=== PATIENT | female | born 1990 | race Caucasian/White ===

== ENCOUNTER → 2019-04-28 15:48 | Outpatient (BNVA) | payer MEDICAID, SELFPAY | PROVIDERS: Family Provider Nurse Practitioner; PCP Nurse Practitioner; Referring Provider Family Medicine; Visit Provider Podiatrist Foot & Ankle Surgery | DX: M79.672 Pain in left foot (principal) | CPT/HCPCS: 73630 ==

== ENCOUNTER 2023-01-17 23:12 | Observation (INO) | payer MEDICAID, SELFPAY ==
[2023-01-17 23:22] VITALS: BP 141/94; PULSE 53; RESP 16; TEMP 36.3; O2SAT 100
--- NOTE | 2023-01-17 23:26 | ECG_ITS ---
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 Measurements Intervals [place] Rate: 56 P: 66 IN: 155 QRS: 67 QRSD: 102 T: 35 QT: 433 QTc: 418 Interpretive Statements SINUS BRADYCARDIA WITH SINUS ARRHYTHMIA No previous ECG available for comparison Electronically Signed On 01-18-2023 12:29:54 CDT by Isidro Dillard M.D. [id number]
[2023-01-17 23:55] LABS: Basophils # 0.1 10^3/uL (0.0-0.1); Basophils % 0.5 %; Eosinophils # 0.1 10^3/uL (0.0-0.8); Eosinophils % 1.2 %; Hematocrit 43.5 % (36-47); Lymphocytes # 1.6 10^3/uL (0.8-4.8); Lymphocytes % 13.9 %; Mean Corpuscular HGB Conc 32.9 g/dL (30-55); Mean Corpuscular Hemoglobin 27.9 pg (27-33); Mean Corpuscular Volume 84.8 fl (85-98); Mean Platelet Volume 9.2 fL (7.4-10.4); Monocytes # 0.6 10^3/uL (0.2-0.9); Monocytes % 4.9 %; Neutrophils # 8.87 10^3/uL (1.8-7.7); Neutrophils % 79.1 %; Nucleated Red Blood Cells % 0 %; Platelet Count 326 10^3/cmm (157-399); Red Blood Count 5.13 10^6/uL (3.85-5.65); Red Cell Distribution Width 12.7 % (12.1-15.1); White Blood Count 11.21 10^3/uL (3.29-11.43)
--- NOTE | 2023-01-18 00:04 | USR_ITS ---
PROCEDURE INFORMATION: Exam: US Abdomen, Limited; Right Upper Quadrant Exam date and time: 01/18/2023 12:24 AM Age: 32 years old Clinical indication: Abdominal pain; Other: Ruq pain x 4 hours; Patient HX: History of intermittent ruq pain x 4 years. TECHNIQUE: Imaging protocol: Real time ultrasound of the abdomen with image documentation. Limited exam focused on the right upper quadrant. COMPARISON: US OB >= 14 weeks fetus [id number] 11/22/2017 1:26 PM FINDINGS: Liver: The liver is enlarged measuring up to 20.5 cm in length. No focal lesions. Gallbladder: There is a shadowing stone in the neck of the gallbladder measuring up to 23 mm. Gallbladder wall thickening measuring up to 7 mm. Sonographic Waite's sign elicited during the examination. Biliary ducts: The common bile duct measures up to 7 mm. Pancreas: Visualized pancreas is unremarkable. Right kidney: Right kidney measures 12.2 cm in length with no hydronephrosis or renal calculus. Inferior vena cava: Visualized abdominal aorta and IVC are unremarkable. US/US gall bladder [id number] IMPRESSION: Acute cholecystitis.
[2023-01-18 00:08] LABS: HCG, Serum Qual Negative (Negative)
--- NOTE | 2023-01-18 00:14 | W.ED.ABDPA2 ---
HPI - Abdominal Pain General: Chief Complaint: Abdominal Pain Stated Complaint: N\V Conjestion Time Seen by Provider: 01/17/23 23:50 Source: patient Mode of arrival: ambulatory Limitations: no limitations History of Present Illness: 32-year-old female states that roughly an hour ago she started having right upper quadrant and epigastric pain. States it was a sharp pain rates an 8 out of 10 she had some belching and nausea had some similar episodes like this in the past she denies any fevers denies any worsening proving factors. Associated Symptoms: Reports nausea; Denies chills, diarrhea, dysuria, fever(s) and vomiting Review of Systems Const: Denies: fever(s), chills, body aches or change in appetite Eyes: Denies: blurry vision or eye discomfort ENMT: Denies: throat pain or dental pain Card: Denies: chest pain Resp: Denies: dyspnea GI: Reports: abdominal pain and nausea; Denies: vomiting or diarrhea : Denies: dysuria Musc: Denies: neck pain or back pain Skin/Breast: Denies: rash Neuro: Denies: headache(s) PFSH ED PFSH: Family History Denies family history of Diabetes CAD (coronary artery disease) Clotting disorder Dementia Hyperlipidemia Psychiatric illness Chronic kidney disease (CKD) Suicide Anesthesia complication Bleeding disorder Family history of premature coronary artery disease Lung disease Cancer Hypertension Stroke Social History Smoking and tobacco/nicotine status: current every day tobacco/nicotine user cigarettes Packs smoked per day: 1 Alcohol intake: current Alcohol intake frequency: holidays/special occasions only Substance/Drug Use: never Current occupational status: employed 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 Physical Exam Const: COMMON NORMALS: no acute distress, patient oriented x3 and healthy appearing HENMT: COMMON NORMALS: normocephalic and atraumatic HEAD & SCALP: normocephalic and atraumatic Eye: COMMON NORMALS: Equal, round and reactive pupils present and EOMs intact bilaterally PUPIL: Yes Equal, round and reactive pupils present Neck/C-Spine: COMMON NORMALS: full ROM and supple Chest: COMMONS NORMALS: normal inspection of the chest and normal palpation of entire chest wall Resp: COMMON NORMALS: normal respiratory effort, No retractions, No use of accessory muscles and clear to auscultation bilaterally AUSCULTATION: clear to auscultation bilaterally Cardio: COMMON NORMALS: regular rate, regular rhythm and No murmurs present (Cardio) RATE: regular rate RHYTHM: regular rhythm GI: COMMON NORMALS: Normal to inspection, nondistended, normoactive bowel sounds present, Soft to palpation and no masses PALPATION: Yes Soft to palpation and Yes Tenderness to palpation present (GI) Details: RUQ Extremity: COMMON NORMALS: normal to inspection and full ROM Neuro: COMMON NORMALS: patient oriented x3, moves all extremities and no focal motor deficits Psych: COMMON NORMALS: mental status grossly normal, Normal thought process present and cooperative THOUGHT PROCESS: Normal thought process present Skin: COMMON NORMALS: no rashes or lesions noted and no wounds GENERAL SKIN EXAM: no rashes or lesions noted Course Vital Signs: Vital signs: Vital Signs Temperature 97.4 F L 01/17/23 23:22 Pulse Rate 53 L 01/17/23 23:22 Respiratory Rate 16 01/17/23 23:22 Blood Pressure 141/94 01/17/23 23:22 Pulse Oximetry 100 01/17/23 23:22 Oxygen Delivery Me thod Room Air 01/17/23 23:22 MDM - Abdominal Pain Medical Decision Making Patient presents here with abdominal pain ultrasound shows acute cholecystitis. Did speak to surgeon on-call will admit at this time on IV antibiotics. Medical Records I reviewed the patient's medical records. Lab Data I reviewed the patient's lab results. 01/17/23 23:47 01/17/23 23:47 Labs/Radiology: Radiology Impressions Gallbladder Ultrasound 01/18/23 00:04 IMPRESSION: Acute cholecystitis. Laboratory Results WBC 11.21 10^3/uL (3.29-11.43) 01/17/23 23:47 RBC 5.13 10^6/uL (3.85-5.65) 01/17/23 23:47 Hgb 14.30 g/dL (11.27-16.99) 01/17/23 23:47 Hct 43.5 % (36-47) 01/17/23 23:47 MCV 84.8 fl (85-98) L 01/17/23 23:47 MCH 27.9 pg (27-33) 01/17/23 23:47 MCHC 32.9 g/dL (30-55) 01/17/23 23:47 RDW 12.7 % (12.1-15.1) 01/17/23 23:47 Plt Count 326 10^3/cmm (157-399) 01/17/23 23:47 MPV 9.2 fL (7.4-10.4) 01/17/23 23:47 Neut % (Auto) 79.1 % 01/17/23 23:47 Lymph % (Auto) 13.9 % 01/17/23 23:47 [place] % (Auto) 4.9 % 01/17/23 23:47 Eos % (Auto) 1.2 % 01/17/23 23:47 Baso % (Auto) 0.5 % 01/17/23 23:47 Neut # (Auto) 8.87 10^3/uL (1.8-7.7) H 01/17/23 23:47 Lymph # (Auto) 1.6 10^3/uL (0.8-4.8) 01/17/23 23:47 [place] # (Auto) 0.6 10^3/uL (0.2-0.9) 01/17/23 23:47 Eos # (Auto) 0.1 10^3/uL (0.0-0.8) 01/17/23 23:47 Baso # (Auto) 0.1 10^3/uL (0.0-0.1) 01/17/23 23:47 Nucleated RBC % (auto) 0 % 01/17/23 23:47 Nucleated RBCs # 0.0 /100WBC 01/17/23 23:47 Sodium 140 mmol/L (136-145) 01/17/23 23:47 Potassium 3.8 mmol/L (3.5-5.1) 01/17/23 23:47 Chloride 104 mmol/L (98-107) 01/17/23 23:47 Carbon Dioxide 23 mmol/L (22-29) 01/17/23 23:47 Anion Gap 16.8 (5-19) 01/17/23 23:47 BUN 11 mg/dL (6-20) 01/17/23 23:47 Creatinine 0.8 mg/dL (0.5-0.9) 01/17/23 23:47 GFR Calculation 82.6 mL/min (90-130) L 01/17/23 23:47 Glucose 151 mg/dL (65-115) H 01/17/23 23:47 Calculated Osmolality 292 mOsm/kg (285-295) 01/17/23 23:47 Calcium 9.3 mg/dL (8.5-10.5) 01/17/23 23:47 Total Bilirubin 0.2 mg/dL (0.15-1.2) 01/17/23 23:47 AST 17 U/L (0-32) 01/17/23 23:47 ALT 29 U/L (0-33) 01/17/23 23:47 Alkaline Phosphatase 65 U/L (35-105) 01/17/23 23:47 Total Protein 7.3 g/dL (6.6-8.7) 01/17/23 23:47 Albumin 4.0 g/dL (3.5-5.2) 01/17/23 23:47 Globulin 3.3 g/dL (1.3-4.6) 01/17/23 23:47 Lipase 29 U/L (13-60) 01/17/23 23:47 HCG, Qual Negative (Negative) 01/17/23 23:47 Urine Color Yellow (Yellow) 01/18/23 00:20 Urine Appearance Hazy (CLEAR) A 01/18/23 00:20 Urine pH 5 (5-7) 01/18/23 00:20 Ur Specific [place] 1.030 (1.005-1.030) 01/18/23 00:20 Urine Protein Trace (Negative) 01/18/23 00:20 Urine Glucose (UA) Norm (Normal) 01/18/23 00:20 Urine Ketones 1+ (Negative) H 01/18/23 00:20 Urine Blood Neg (Negative) 01/18/23 00:20 Urine Nitrate Negative (Negative) 01/18/23 00:20 Urine Bilirubin 1+ (Negative) H 01/18/23 00:20 Urine Urobilinogen 1 mg/dL (Negative) H 01/18/23 00:20 Ur Leukocyte Esterase 1+ (Negative) H 01/18/23 00:20 Urine RBC 0-4 /hpf (0-2) H 01/18/23 00:20 Urine WBC 5-10 /hpf (0-5) H 01/18/23 00:20 Ur Squamous Epith Cells 15-25 /hpf (0-5) H 01/18/23 00:20 Amorphous Sediment Not Reportable 01/18/23 00:20 Urine Bacteria 2+ /hpf (NONE) H 01/18/23 00:20 All radiology interpretation(s) finalized by discharge Discharge Plan Discharge Patient Disposition: Admitted As Inpatient Clinical Impression: Cholecystitis Condition: Stable Coding Level of Care Code ED Calculating Machine Mechanic for Kavya Nguyen
[2023-01-18 00:17] LABS: Alanine Aminotransferase 29 U/L (0-33); Alkaline Phosphatase 65 U/L (35-105); Anion Gap 16.8 (5-19); Aspartate Amino Transferase 17 U/L (0-32); Blood Urea Nitrogen 11 mg/dL (6-20); Calcium 9.3 mg/dL (8.5-10.5); Carbon Dioxide 23 mmol/L (22-29); Chloride 104 mmol/L (98-107); Globulin 3.3 g/dL (1.3-4.6); Glomerular Filtration Rate 82.6 mL/min (90-130); Glucose 151 mg/dL (65-115); Lipase 29 U/L (13-60); Osmolality Calculated 292 mOsm/kg (285-295); Potassium 3.8 mmol/L (3.5-5.1); Sodium 140 mmol/L (136-145); Total Bilirubin 0.2 mg/dL (0.15-1.2); Total Protein 7.3 g/dL (6.6-8.7)
[2023-01-18 00:27] LABS: Glucose Urine UA Norm (Normal); Ketones Urine 1+ (Negative); Protein Urine Trace (Negative); Urine Appearance Hazy (CLEAR); Urine Color Yellow (Yellow); pH Urine 5 (5-7)
[2023-01-18 00:28] LABS: Add Urine Culture? No; Add Urine Microscopic? YES; Bacteria Urine 2+ /hpf; Bilirubin Urine 1+ (Negative); Blood Urine Neg (Negative); Leukocyte Esterase Urine 1+ (Negative); Nitrate Urine Negative (Negative); RBC Urine 0-4 /hpf (0-2); Squamous Epithelial Cell Urine 15-25 /hpf (0-5); Urobilinogen Urine 1 mg/dL (Negative)
[2023-01-18] MEDS: sodium chloride 0.9% 1,000 ML 999 ML IV (01:24)
[2023-01-18] MEDS: piperacillin-tazobactam 3.375 GM in sodium chloride 0.9% (plus) 50 ML IV ×2 (01:30→09:45)
[2023-01-18 01:33] VITALS: BP 123/93; PULSE 78; RESP 16; O2SAT 99
[2023-01-18] MEDS: ketorolac 30 mg/mL INJ IVP ×2 (02:36→09:45)
[2023-01-18] MEDS: sodium chloride 0.9% 1,000 ML 100 ML IV (02:36)
--- NOTE | 2023-01-18 06:59 | P.HP_ITS ---
Providers/Chief Complaint Admitting Physician: Diego Adame MD Chief Complaint: N\V Conjestion History of Present Illness Suzie Cole is a 32 year old female Who presented to the emergency department complaining of right upper quadrant abdominal pain and nausea. Patient has had multiple episodes of right upper quadrant pain over the span of years. Yesterday she decided to present to the ED as the pain would not subsi de. Per patient report once in the ED the patient went to 1 of its own and she did not want to receive any pain medication. An ultrasound done while the patient was in the emergency department show evidence of gallbladder wall thickening which was concerning for acute cholecystitis and therefore I was consulted. Patient was admitted to observation overnight for IV antibiotics and I evaluated patient this morning for discussion of possible surgical management. On my evaluation patient is completely asymptomatic, no abdominal pain, no nausea, no vomiting. Review of Systems General: Reports: 10 or more systems reviewed and unremarkable except in HPI and below Medications/Allergies Home Medications Medication Instructions Recorded Confirmed Last Taken Type albuterol sulfate 90 mcg/actuation 2 puff inhalation QID PRN 07/30/22 07/30/22 Unknown Rx aerosol inhaler (ProAir HFA) shortness of breath or wheezing #6.7 grams doxycycline hyclate 100 mg tablet 100 mg PO BID #14 tabs 07/30/22 07/30/22 Unknown Rx prednisone 20 mg tablet 20 mg PO BID #6 tabs 07/30/22 07/30/22 Unknown Rx promethazine-DM 6.25 mg-15 mg/5 mL 5 ml PO Q6H PRN cough #240 mL 07/30/22 07/30/22 Unknown Rx oral syrup Allergies Allergy/AdvReac Type Severity Reaction Status Date / Time No Known Allergies Allergy Verified 01/17/23 23:32 PFSH Acute PFSH: Family History Denies family history of Diabetes CAD (coronary artery disease) Clotting disorder Dementia Hyperlipidemia Psychiatric illness Chronic kidney disease (CKD) Suicide Anesthesia complication Bleeding disorder Family history of premature coronary artery disease Lung disease Cancer Hypertension Stroke Social History Smoking and tobacco/nicotine status: current every day tobacco/nicotine user cigarettes Packs smoked per day: 1 Alcohol intake: current Alcohol intake frequency: holidays/special occasions only Substance/Drug Use: never Current occupational status: employed 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 Nose : Mucous membranes are without erythema. Lungs : Equal chest rise bilaterally, no use of accessory muscles, trachea is midline. CV : Rate and rhythm are normal. Abdomen : Soft, ND, NT, no g/r/m Extremities : No edema. Upper extremities are normal bilaterally. Back : non-tender to palpation, no CVA tenderness. Data 01/17/23 23:47 01/17/23 23:47 A&P Assessment and plan (1) Biliary colic: Plan After a complete history, physical examination and review of all available clinical data the following is my assessment. While initially thought to be acute cholecystitis, patient clinical picture corresponds more to biliary colic in the setting of chronic cholecystitis. I have discussed with the patient several treatment options including surgical excision as inpatient. Patient has indicated that she at the moment is a symptomatic and she can go months at a time without having symptoms and therefore we will like to prefer to avoid surgical intervention if possible. I have explained that due to the fact that multiple gallstones as well as chronic thickening of the gallbladder surgical intervention would most likely continue to be indicated even if we do not do it in acute setting. As a compromise we have decided to continue nonoperative management now, reassess in the clinic and plan for surgery in the next 6 to 8 weeks. I have also indicated to the patient that several changes in his lifestyle and diet will be necessary for prevention of further episodes of gallbladder pain. Will start clear liquids this morning, advance diet as tolerated if patient is tolerating diet well I will proceed with discharge this afternoon. In the case of recurrent episodes of gallbladder pain I think surgical intervention should be no longer deferred. Attestations Medical Necessity Statement*: Patient will likely to be discharged later this afternoon. Coding Level of Care Code 96987 Diagnoses Biliary colic K80.50
--- NOTE | 2023-01-18 12:57 | P.DS_ITS ---
Discharge Providers Date of Admission: 01/18/23 02:24 Date of Discharge: January 18, 2023 Attending Provider at Admission: Diego Adame MD Attending Provider at Discharge: Diego Aadme MD Diagnoses at Discharge Discharge Diagnosis (1) Biliary colic: Details from hospital stay: Presented to the hospital for possible acute cholecystitis. On my evaluation this morning patient was completely asymptomatic, she denies any abdominal pain, symptoms appear to be more related to biliary colic with chronic cholecystitis rather than acute cholecystitis. Patient was given a p.o. trial and tolerated well diet. Patient has requested to be discharged. I have explained to the patient that I still think it will be beneficial to remove her gallbladder in elective basis. 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 We will meet in the clinic to discuss the possibility of surgery in the meantime I have prescribed antibiotics anti-inflammatories and fat-free diet. Status: Acute Reason for Visit Reason for Visit: N\V Conjestion Physical Exam GI: OTHER: Abdomen soft, nontender nondistended Discharge Data Studies Completed and Pending Completed Studies During Hospitalization Category Date Time Status US gall bladder 70536 Stat Ultrasound 01/18/23 00:04 Completed Radiology Impressions Gallbladder Ultrasound 01/18/23 00:04 IMPRESSION: Acute cholecystitis. Laboratory Results WBC 11.21 10^3/uL (3.29-11.43) 01/17/23 23:47 RBC 5.13 10^6/uL (3.85-5.65) 01/17/23 23:47 Hgb 14.30 g/dL (11.27-16.99) 01/17/23 23:47 Hct 43.5 % (36-47) 01/17/23 23:47 MCV 84.8 fl (85-98) L 01/17/23 23:47 MCH 27.9 pg (27-33) 01/17/23 23:47 MCHC 32.9 g/dL (30-55) 01/17/23 23:47 RDW 12.7 % (12.1-15.1) 01/17/23 23:47 Plt Count 326 10^3/cmm (157-399) 01/17/23 23:47 MPV 9.2 fL (7.4-10.4) 01/17/23 23:47 Neut % (Auto) 79.1 % 01/17/23 23:47 Lymph % (Auto) 13.9 % 01/17/23 23:47 [place] % (Auto) 4.9 % 01/17/23 23:47 Eos % (Auto) 1.2 % 01/17/23 23:47 Baso % (Auto) 0.5 % 01/17/23 23:47 Neut # (Auto) 8.87 10^3/uL (1.8-7.7) H 01/17/23 23:47 Lymph # (Auto) 1.6 10^3/uL (0.8-4.8) 01/17/23 23:47 [place] # (Auto) 0.6 10^3/uL (0.2-0.9) 01/17/23 23:47 Eos # (Auto) 0.1 10^3/uL (0.0-0.8) 01/17/23 23:47 Baso # (Auto) 0.1 10^3/uL (0.0-0.1) 01/17/23 23:47 Nucleated RBC % (auto) 0 % 01/17/23 23:47 Nucleated RBCs # 0.0 /100WBC 01/17/23 23:47 Sodium 140 mmol/L (136-145) 01/17/23 23:47 Potassium 3.8 mmol/L (3.5-5.1) 01/17/23 23:47 Chloride 104 mmol/L (98-107) 01/17/23 23:47 Carbon Dioxide 23 mmol/L (22-29) 01/17/23 23:47 Anion Gap 16.8 (5-19) 01/17/23 23:47 BUN 11 mg/dL (6-20) 01/17/23 23:47 Creatinine 0.8 mg/dL (0.5-0.9) 01/17/23 23:47 GFR Calculation 82.6 mL/min (90-130) L 01/17/23 23:47 Glucose 151 mg/dL (65-115) H 01/17/23 23:47 Calculated Osmolality 292 mOsm/kg (285-295) 01/17/23 23:47 Calcium 9.3 mg/dL (8.5-10.5) 01/17/23 23:47 Total Bilirubin 0.2 mg/dL (0.15-1.2) 01/17/23 23:47 AST 17 U/L (0-32) 01/17/23 23:47 ALT 29 U/L (0-33) 01/17/23 23:47 Alkaline Phosphatase 65 U/L (35-105) 01/17/23 23:47 Total Protein 7.3 g/dL (6.6-8.7) 01/17/23 23:47 Albumin 4.0 g/dL (3.5-5.2) 01/17/23 23:47 Globulin 3.3 g/dL (1.3-4.6) 01/17/23 23:47 Lipase 29 U/L (13-60) 01/17/23 23:47 HCG, Qual Negative (Negative) 01/17/23 23:47 Urine Color Yellow (Yellow) 01/18/23 00:20 Urine Appearance Hazy (CLEAR) A 01/18/23 00:20 Urine pH 5 (5-7) 01/18/23 00:20 Ur Specific [place] 1.030 (1.005-1.030) 01/18/23 00:20 Urine Protein Trace (Negative) 01/18/23 00:20 Urine Glucose (UA) Norm (Normal) 01/18/23 00:20 Urine Ketones 1+ (Negative) H 01/18/23 00:20 Urine Blood Neg (Negative) 01/18/23 00:20 Urine Nitrate Negative (Negative) 01/18/23 00:20 Urine Bilirubin 1+ (Negative) H 01/18/23 00:20 Urine Urobilinogen 1 mg/dL (Negative) H 01/18/23 00:20 Ur Leukocyte Esterase 1+ (Negative) H 01/18/23 00:20 Urine RBC 0-4 /hpf (0-2) H 01/18/23 00:20 Urine WBC 5-10 /hpf (0-5) H 01/18/23 00:20 Ur Squamous Epith Cells 15-25 /hpf (0-5) H 01/18/23 00:20 Amorphous Sediment Not Reportable 01/18/23 00:20 Urine Bacteria 2+ /hpf (NONE) H 01/18/23 00:20 Vitals Last Vital Signs Temp 97.4 F L 11/02/23 23:22 Pulse 78 01/18/23 01:33 Resp 16 01/18/23 01:33 BP 123/93 01/18/23 01:33 Pulse Ox 99 01/18/23 01:33 O2 Del Method Room Air 01/18/23 02:45 Discharge Plan Discharge Patient Disposition: Home Condition: Stable Prescriptions: New amoxicillin-pot clavulanate 875-125 mg tablet 1 tab PO BID Qty: 14 0RF meloxicam 15 mg tablet 15 mg PO DAILY Qty: 7 0RF pantoprazole 40 mg tablet,delayed release (DR/EC) 40 mg PO DAILY Qty: 20 0RF Discharge Orders: Discharge Order (Routine); Ordered 01/18/23 Ordered By: Diego Adame Referrals: Diego Adame MD [Physician] - (2 weeks We have notified your physician's clinic of the need for a follow-up appointment to be scheduled. If you have not heard from them within the next 2 business days, please call them directly. You may also reach out to our water/wastewater project manager at [phone] and she can assist you.) Discharge Diet: Advance as tolerated Discharge Activity: Resume usual activity Patient Instructions: Amoxicillin/Clavulanate Potassium (By mouth), Pantoprazole (By mouth), Meloxicam (By mouth), Low Fat Diet (DC), Opioid Safety Discharge Attestations Time Spent in Discharge Care*: less than 30 min Quality Metrics Clinical Quality Measures [ No reported AMI, CVA or VTE this stay] Coding Level of Care Code Acute Code for Chg Fwd Diagnoses Biliary colic K80.50
[2023-01-18 13:42] VITALS: BP 123/93; PULSE 78; RESP 16; O2SAT 99
== END 2023-01-18 13:30 | disposition home or self-care (01) ==
LOC: ER 01-18 01:16 → MEDSURG 01-18 02:03
PROVIDERS: Admitting Provider Surgery; Emergency Provider Emergency Medicine; Visit Provider Surgery
DX: K80.50 Calculus of bile duct without cholangitis or cholecystitis without obstruction (principal); F17.210 Nicotine dependence, cigarettes, uncomplicated
CPT/HCPCS: 36415; 76705; 80053; 81001; 83690; 84703; 85025; 93005; 96361; 96365; 96375; 99285; G0378; J1885; J2543; J7030

== ENCOUNTER → 2023-11-12 16:20 | Outpatient (BNVA) | payer OTHER, SELFPAY | PROVIDERS: Visit Provider Nurse Practitioner Family | DX: N93.9 Abnormal uterine and vaginal bleeding, unspecified (principal); R73.9 Hyperglycemia, unspecified | CPT/HCPCS: 80053; 83036; 84443; 85025 ==

== ENCOUNTER 2023-12-09 13:47 | Outpatient (CLI) | payer OTHER, MEDICAID, SELFPAY ==
--- NOTE | 2023-12-09 14:00 | US_ITS ---
WS: [id number] US pelvic complete* [id number] HISTORY: N93.9 - Abnormal uterine and vaginal bleeding, unspecified COMPARISON: None available. Uterus: 10.1 cm x 6.0 cm x 5.6 cm. Uterus is anteverted. Mild uterine enlargement. Poorly visualized uterus. Fibroid cannot be excluded. Endometrium: 0.9 cm. Poorly visualized. Right ovary: 1.8 cm x 1.5 cm x 1.9 cm. Poorly visualized only by transabdominal imaging. Left ovary: 1.7 cm x 1.7 cm x 1.8 cm. Poorly visualized only by transabdominal imaging. No free fluid in the cul-de-sac. US/US pelvic complete* [id number] IMPRESSION: 1. Suboptimal evaluation of the uterus and adnexa. Only transabdominal imaging is submitted. Transvaginal imaging needs to be performed to evaluate the endom etrium. 2. Recommend reevaluation of the uterus, adnexa and endometrium by transvagina l ultrasound evaluation.
== END 2023-12-09 13:48 | disposition home or self-care (01) ==
PROVIDERS: PCP Nurse Practitioner Family; Visit Provider Nurse Practitioner Family
DX: N93.9 Abnormal uterine and vaginal bleeding, unspecified (principal)
CPT/HCPCS: 76856

== ENCOUNTER → 2024-01-20 16:35 | Outpatient (BNVA) | payer OTHER, MEDICAID, SELFPAY | PROVIDERS: PCP Nurse Practitioner Family; Visit Provider Nurse Practitioner Women's Health | DX: N92.6 Irregular menstruation, unspecified (principal) | CPT/HCPCS: 83001; 83520; 84146; 84402; 84403 ==

== ENCOUNTER → 2024-02-05 12:34 | Outpatient (BNVA) | payer OTHER, MEDICAID, SELFPAY | PROVIDERS: PCP Nurse Practitioner Family; Visit Provider Nurse Practitioner Women's Health | DX: N92.6 Irregular menstruation, unspecified (principal); N83.291 Other ovarian cyst, right side | CPT/HCPCS: 76830 ==

== ENCOUNTER → 2024-02-17 14:03 | Outpatient (BNVA) | payer OTHER, MEDICAID, SELFPAY | PROVIDERS: PCP Nurse Practitioner Family; Visit Provider Nurse Practitioner Family | DX: R10.11 Right upper quadrant pain (principal); K82.9 Disease of gallbladder, unspecified; K59.00 Constipation, unspecified | CPT/HCPCS: 74018; 80053; 85025 ==

== ENCOUNTER 2024-03-06 10:27 | Outpatient (CLI) | payer OTHER, MEDICAID, SELFPAY ==
--- NOTE | 2024-03-06 10:45 | US_ITS ---
WS: [id number] RIGHT UPPER QUADRANT ULTRASOUND HISTORY: R10.10 - Upper abdominal pain, unspecified COMPARISON: 01/18/2023 Liver: 17.6 cm in length. Liver is top normal size. No mass. No intrahepatic duct dilatation. Portal Vein: Normal hepatopetal flow with monophasic waveform. Gallbladder: Normally distended gallbladder. Large stone at the gallbladder neck measures 3.1 cm and does not move with patient positioning. Small amount of sludge in the gallbladder. No pericholecystic fluid. CBD: 0.3 cm Pancreas: Normal size and echogenicity. Right kidney: 11.2 cm in length. Normal size and echogenicity. No hydronephrosis or mass. Aorta and IVC: Unremarkable abdominal aorta and IVC. No ascites. US/US gall bladder [id number] IMPRESSION: 1. Cholelithiasis without evidence for acute cholecystitis. Stone has increase d in size within the gallbladder since the prior study of 01/18/2023. 2. No bile duct dilatation. 3. No intrahepatic duct dilatation.
== END 2024-03-06 10:28 | disposition home or self-care (01) ==
PROVIDERS: PCP Nurse Practitioner Family; Visit Provider Nurse Practitioner Family
DX: K80.20 Calculus of gallbladder without cholecystitis without obstruction (principal)
CPT/HCPCS: 76705